=== PATIENT | female | born 1940 | race Caucasian/White ===

== ENCOUNTER 2018-07-06 04:54 | Inpatient (IN) ==
--- NOTE | 2018-06-16 10:53 | PAT Medication Instructions ---
Medication Instructions Date of Service June 16, 2018 ASK your prescriber and surgeon skjyjll-fewlugvdxcamr-dkyyjsap 2 tab PO Q6H PRN DO NOT take the morning of surgery calcium carbonate [Tums] 200 mg PO TID PRN hydrochlorothiazide 25 mg PO QAM magnesium 250 mg PO DAILY pseudoephedrine HCl [Sudafed] 30 mg PO BID PRN Take morning of surgery With a small sip of water, OTHERWISE NOTHING TO EAT OR DRINK AFTER MIDNIGHT: levothyroxine 50 mcg PO QAM Take evening before surgery calcium carbonate [Tums] 200 mg PO TID PRN (if needed) pseudoephedrine HCl [Sudafed] 30 mg PO BID PRN (if needed) travoprost [Travatan Z] 1 drp OPHTHALMIC (EYE) PM Other Notes If you have any questions please call us at [phone] or [phone] or [phone] or [phone]
--- NOTE | 2018-06-17 13:00 | Anesthesiology Consultation ---
Date of Service June 17, 2018 Assessment & Plan (1) Encounter for pre-operative examination: Chart Review Chart Review: Acceptable Risk for Surgery and Patient seen in Pre Admission Testing Teaching & Discussion Pre-Anesthesia Teaching/Discussion Notes: Instructed NPO after midnight before surgery,except medications with 15 cc of water. Medication instructions provided according to the PAT guidelines. History Surgery Operation Date: 07/06/18 07:00 Proposed Procedures p Total Knee Arthroplasty - Haseeb Alfaro MD Height/Weight Height: 5 ft 7.25 in Weight: 82.5 kg Allergies Allergy/AdvReac Type Severity Reaction Status Date / Time adhesive Allergy Severe SKIN Verified 06/17/18 14:05 REDDENING AND BLISTERING nickel Allergy Severe LOCALIZED Verified 06/17/18 14:05 SWELLING; "PUS" REACTION FROM [facility] codeine AdvReac Severe GI SYMPTOMS Verified 06/17/18 14:05 gabapentin AdvReac VOMITING Verified 06/17/18 13:12 Additional Notes: OR/surgeon made aware of nickel allergy* Medications Home Medications Medication Instructions Recorded Confirmed Last Taken vpaqbwz-xjmtmtntslaba-zetkebtf 2 tab PO Q6H PRN 06/16/18 06/16/18 Unknown [Excedrin Extra Strength] calcium carbonate [Tums] 200 mg PO TID PRN 06/16/18 06/16/18 Unknown hydrochlorothiazide 25 mg PO QAM 06/16/18 06/16/18 Unknown levothyroxine 50 mcg PO QAM 06/16/18 06/16/18 Unknown magnesium 250 mg PO DAILY 06/16/18 06/16/18 Unknown pseudoephedrine HCl [Sudafed] 30 mg PO BID PRN 06/16/18 06/16/18 Unknown travoprost [Travatan Z] 1 drp OPHTHALMIC (EYE) PM 06/16/18 06/16/18 Unknown potassium chloride 20 meq PO DAILY 06/28/18 06/28/18 Unknown Past Medical History Medical History Bronchitis 04/2018= RESOLVED Cancer SCC, BCC GERD (gastroesophageal reflux disease) CONTROLLED Hypertension Hypothyroidism Migraine H/O Osteoarthritis Thyroid nodule Past Family History Family History Other No pertinent family history Past Surgical History Surgical History H/O toe surgery REMOVAL OF LEFT BIG TOE JOINT WITH HARDWARE PLACED History of cataract surgery B/L History of colonoscopy History of tonsillectomy Hx of lumpectomy "BENIGN" S/P GILMA (total abdominal hysterectomy) Status post Mohs surgery Past Anesthesia History No Hx of Anesthesia Complications (EXCEPT PONV) and No Family Hx of Anesthesia Complications History of PONV Yes Motion Sickness Screening History of Motion Sickness: Yes (MILD) Social History Smoking Status: Never smoker Do You Dip or Chew Tobacco: No Hx Alcohol Use: Yes Alcohol type: wine alcohol intake frequency: a few times a month Hx Substance Use: No substance use type: does not use Exercise / Class Metabolic Activity II 4-5 Yardwork/Stairs/Walk up hill Review of Systems Patient denies chest pain, shortness of breath, dyspnea on exertion, cough, wheezing, palpitations. Physical Exam Vital Signs VITALS BP 123/81 P 77 TEMP 97.7 SP02 97%RA RESP 18 PHYSICAL Full neck and c-spine range of motion. Full TMJ range of motion. TMD 2.5 finger breaths Mallampati Score 2 Dentition: intact Lungs: clear throughout to auscultation Cardiac: regular rate and rhythm, no murmurs noted Spine: normal Carotid arteries: negative bruit Extremities: no edema Testing Electrocardiogram Date: 06/17/18 Normal sinus rhythm at 73bpm. Left anterior fascicular block. Left axis deviation. Chest X-Ray Date: 06/17/18 Findings: + NAD Laboratory Results 06/17/18 13:27 06/17/18 13:27 Blood Type O Negative 06/17/18 13:27 Antibody Screen NEGATIVE 06/17/18 13:27 PT 9.8 Seconds (9.0-12.0) 06/17/18 13:27 INR 1.0 (0.9-1.1) 06/17/18 13:27 APTT 26.8 Seconds (21.0-31.0) 06/17/18 13:27 Repeat BMP: 06/25/18 SODIUM 142 POTASSIUM 4.4 (normalized after KCl 20meq twice daily x 1 week; PCP reviewed normalized K+ labs and are having patient now take KCl 20meq daily) CHLORIDE 105 CO2 27 BUN 14 CREATININE 0.6 GLUCOSE 91
--- NOTE | 2018-06-17 13:50 | XRay Report ---
XR chest Pre-admission PA/Lat CLINICAL HISTORY: Preoperative chest COMPARISON STUDY: No previous studies for comparison. FINDINGS: The cardiac and mediastinal contours are normal. There is no evidence of focal pulmonary co nsolidation. There is no evidence of failure. No pleural effusions are visualized.[ IMPRESSION: No active disease in the chest. Electronically signed by: Giovani Shi M.D. 06/17/2018 1:49 PM
[2018-06-17 15:14] LABS: BUN Creatinine Ratio 24.9 (10-20); Calcium 9.1 mg/dl (8.5-10.1); Creatinine Clr Calc Pharmacy 99.2 ml/min; Est GFR (African American) 106.9; Est GFR (Non-African American) 92.2; Potassium 2.7 mmol/L (3.5-5.1)
[2018-06-17 15:17] LABS: Partial Thromboplastin Time 26.8 Seconds (21.0-31.0); Prothrombin Time 9.8 Seconds (9.0-12.0)
[2018-06-17 15:55] LABS: Basophils # (auto) 0.02 K/uL (0-0.2); Basophils % (auto) 0.5 %; Eosinophils # (auto) 0.05 K/uL (0-0.5); Eosinophils % (auto) 1.4 %; Hematocrit (blood only) 37.9 % (37-47); Lymphocytes # (auto) 1.38 K/uL (1.2-3.4); Lymphocytes % (auto) 37.9 %; Mean Corpuscular Hgb Conc 34.3 g/dL (32-36); Mean Corpuscular Volume 86.7 fL (80-100); Mean Platelet Volume 11.6 fL (7.4-10.4); Monocytes # (auto) 0.38 K/uL (0.11-0.59); Monocytes % (auto) 10.4 %; Neutrophils # (auto) 1.81 K/uL (1.4-6.5); Neutrophils % (auto) 49.8 %; Platelet Count 226 K/uL (130-400); RDW Coefficient of Variation 14.3 % (11.5-14.5); RDW Standard Deviation 45.4 fL (36.4-46.3); Red Blood Count 4.37 M/uL (4.2-5.4); White Blood Count 3.64 K/uL (4.8-10.8)
--- NOTE | 2018-07-03 13:19 | History and Physical Report ---
DATE OF ADMISSION: 07/06/2018 CHIEF COMPLAINT: Left knee pain. HISTORY OF PRESENT ILLNESS: A 77-year-old white female who I have been following for the past several years for left knee pain and discomfort and DJD, primarily patellofemoral arthritis. It has been bothered her for a total of about 7-8 years. No injury. We have been treated her with her injections, which provided her some temporarily. This has become less successful over time. It helps for a couple weeks and that is about it. She is pretty miserable for the two months until the next shot. She has a lot of upcoming activities that she would like to be able to be more functional and have less pain. She limps as the day goes on. She has nighttime discomfort. She now would like to proceed with surgical treatment. When this knee does get aggravated, she has difficulty walking for about 5-6 days. PAST MEDICAL HISTORY: 1. Hypertension. 2. Hypothyroidism. 3. Gastroesophageal reflux disease. 4. Arthritis. 5. Skin cancer. PAST SURGICAL HISTORY: Previous surgeries include: 1. Left forefoot surgery. 2. Hysterectomy. 3. Eye surgery. ALLERGIES: NICKEL AND ADHESIVE BANDAGES. CURRENT MEDICINES: Include: 1. Hydrochlorothiazide 25 mg. 2. Levothyroxine 50 mcg daily. 3. Sudafed as needed. 4. Travatan eyedrops. 5. Omeprazole 20 mg a day. SOCIAL HISTORY: A 77-year-old white female. She is from [place]. She does not smoke. FAMILY HISTORY: Significant for breast cancer. REVIEW OF HISTORY: Negative for diabetes, neurologic problem, vascular problem, bleeding disorders. No chest pain or shortness of breath. No history of DVT or PE. No bleeding disorders. PHYSICAL EXAMINATION: GENERAL: A healthy, pleasant elderly female. Looks to be in pretty good health. HEENT: Benign. NECK: Supple. No lymphadenopathy. LUNGS: Clear to auscultation. HEART: Regular rate and rhythm. ABDOMEN: Soft, nontender, nondistended. EXTREMITIES: Grossly neurovascularly intact except as follows: Examination of the left leg reveals the patient walks with a bit of a stiff knee gait. She has a moderate to large knee joint effusion. Range of motion about 5 degrees short of full extension and 110 degrees of flexion. She has pain with flexion. She can do a straight leg raise. No pain with hip motion. X-RAYS: X-rays of the left knee reviewed. Shows some mild to moderate tibial femoral arthritis with severe/advanced patellofemoral arthritis. She has got a little bit of patellofemoral subluxation. She has got osteophytes in all 3 compartments. ASSESSMENT: A 77-year-old white female with a long history of left knee pain and discomfort consistent with moderate to advanced knee DJD. Moderate tibial femoral arthritis, but advanced patellofemoral arthritis. She has failed conservative treatment and would like to proceed with knee replacement. PLAN: We are going to proceed with a left total knee replacement. We talked about the risks and benefits of this procedure were explained to the patient including but not limited to DVT, PE, , infection, neurological injury, vascular injury, bleeding problem, pain, limited range of motion, stiffness, failure to relieve her symptoms, incomplete relief of symptoms, need for further surgery in the future, fracture, leg length inequality, nerve palsy, persistent pain, and incomplete relief of symptoms. I did tell this is less predictable for patellofemoral arthritis than tibiofemoral arthritis and this will be about a 70% chance that she will have good result. She understands and would like to proceed. She does have a NICKEL ALLERGY, so we will use a Saldivar and Nephew zirconium total knee replacement to avoid nickel issues. She is planning to be discharged to home using [facility] home health program.
[~2018-07-06 04:54] MED LIST: MISSING PHYSICIAN SIGNATURE ON ORDER SCH
--- OUTSIDE RECORDS SUMMARY | 2018-07-06 04:57 | External Medical Summary | Continuity of Care Document ---
:1940 Author Name Ja Keyes, Provider Address Unavailable Unavailable , Care Team Providers Name Role Phone Unavailable Unavailable Unavailable CHRISTOHPER LOREDO Unavailable Unavailable Problems Active medical history not documented Allergies and Adverse Reactions Bandaid (Allergy) Latex (Allergy) Nickel (Allergy) Medications hydroCHLOROthiazide TABS , M.D. Refills: 0 Synthroid TABS , M.D. Refills: 0 Zantac TABS , M.D. Refills: 0 Procedures Procedures not documented Immunizations Immunizations not documented Plan of Treatment Planned Observations Planned Goals not documented Results No Known Results Results not documented
[2018-07-06] MEDS ORDERED: FAMOTIDINE 20 MG TAB ONE (05:54)
[2018-07-06] MEDS ORDERED: ACETAMINOPHEN 500 MG TAB ONE (05:55)
[2018-07-06] MEDS ORDERED: METOCLOPRAMIDE HCL 10 MG TABLET ONE (05:55)
[2018-07-06] MEDS ORDERED: CEFAZOLIN 2,000 MG/15 ML IV PUSH IV ONE (05:56)
[2018-07-06] MEDS ORDERED: ACETAMINOPHEN 500 MG TAB PO SCH ×2 (06:00)
[2018-07-06] MEDS ORDERED: BUPIVACAINE LIPOSOME/PF 266 MG, BUPIVACAINE/EPINEPHRINE 50 ML, SODIUM CHLORIDE 0.9% 30 ... INFIL SCH ×2 (06:00)
[2018-07-06] MEDS ORDERED: CEFAZOLIN 2000MG 2,000 MG/15 ML SYR IV SCH ×2 (06:00)
[2018-07-06] MEDS ORDERED: FAMOTIDINE 20 MG TAB PO SCH (06:00)
[2018-07-06] MEDS ORDERED: LR 500ML BOLUS, THEN 15ML/HR IV SCH (06:00)
[2018-07-06] MEDS ORDERED: METOCLOPRAMIDE HCL 10 MG TABLET PO SCH ×2 (06:00)
[2018-07-06] MEDS ORDERED: LR 60ML/HR IV SCH ×2 (06:00)
[2018-07-06] MEDS ORDERED: GABAPENTIN 300 MG PO SCH ×2 (06:00)
[2018-07-06] MEDS ORDERED: ROPIVACAINE 0.5% 5 MG/ML 30 ML VIAL ONE (06:24)
[2018-07-06] MEDS ORDERED: BUPIVACAINE 0.5 % 5 MG/1 ML PF 10ML VIAL ONE (06:24)
[2018-07-06] MEDS ORDERED: EPINEPHrine INJ 1 MG/ML AMP ONE (06:24)
[2018-07-06] MEDS ORDERED: MIDAZOLAM HCL 1 MG/ML 2ML VIAL ONE ×2 (06:25→08:01)
[2018-07-06] MEDS ORDERED: fentaNYL citrate 100 MCG/2 ML VIAL ONE (06:26)
[2018-07-06] MEDS ORDERED: TRANEXAMIC ACID 1,000 MG **IV Intra-op IV SCH ×2 (06:30)
[2018-07-06] MEDS ORDERED: BACITRACIN INJ 50,000 UNIT VIAL ONE (06:39)
[2018-07-06] MEDS ORDERED: BUPIVACAINE 0.25% 30 ML VIAL ONE (06:39)
[2018-07-06] MEDS ORDERED: SODIUM CHLORIDE 0.9% PF 50 ML VIAL ONE (06:42)
[2018-07-06] MEDS ORDERED: BUPIVACAINE LIPOSOME 1.3% 266 MG/20 ML VIAL ONE (06:43)
--- NOTE | 2018-07-06 06:48 | History & Physical Bridge Note ---
Date of Service July 06, 2018 History & Physical Bridge Note I have examined the patient, reviewed the History & Physical and in the interval since the performance of the History & Physical I have noted the following changes of clinical significance: no changes noted
--- NOTE | 2018-07-06 08:42 | Post Operative Brief Note ---
Immediate Post Op Note v1 Date of Surgery July 06, 2018 Pre & Post Diagnosis Operation Date: 07/06/18 07:00 Pre-Op Diagnosis: Left Knee Degenerative Joint Disease Post-Op Diagnosis: Left Knee Degenerative Joint Disease Procedure Operation Date: 07/06/18 07:00 Actual Procedures p Left Total Knee Replacement/ Cemented - Haseeb Alfaro MD Surgeon Haseeb Alfaro MD [employer] Tabeler David, PAC Estimated Blood Loss 50 Findings Consistent with Post-Op Diagnosis Fluids 900 cc Specimens Left Knee + Synovium Drains Singh Catheter Anesthesia Type Spinal MAC Complications none Disposition Accompanied Patient To Recovery: No Disposition: Recovery Room
[2018-07-06] MEDS ORDERED: ONDANSETRON INJ 2 MG/ML 2 ML VIAL ONE (08:49)
[2018-07-06] MEDS ORDERED: ePHEDrine sulfate 50 MG/ML AMP IV PRN (09:04)
[2018-07-06] MEDS ORDERED: PROMETHAZINE HCL 12.5 MG in SODIUM CHLORIDE 0.9% 50 ML IV PRN (09:04)
[2018-07-06] MEDS ORDERED: ONDANSETRON INJ 2 MG/ML 2 ML VIAL IV PRN (09:04)
[2018-07-06] MEDS ORDERED: ATROPINE SULFATE 0.1 MG/ML 10ML SYR IV PRN (09:04)
[2018-07-06] MEDS ORDERED: NALOXONE HCL 0.4 MG/1 ML VIAL/CARP IV PRN ×2 (09:04→10:28)
[2018-07-06] MEDS ORDERED: FLUMAZENIL 0.1 MG/1 ML 10 ML VIAL IV PRN (09:04)
[2018-07-06] MEDS ORDERED: fentaNYL citrate 100 MCG/2 ML VIAL IV PRN (09:04)
--- NOTE | 2018-07-06 09:21 | XRay Report ---
LEFT KNEE 2 VIEWS History: Left total knee arthroplasty. Degenerative arthritis. Postop. FINDINGS: The patient is status post a left total knee arthroplasty. The hardware is intact. No fract ure or dislocation. Skin keren are in place. IMPRESSION: Left total knee arthroplasty. No evidence for hardware complication. Electronically signed by: Garrick Reddy M.D. 07/06/2018 9:20 AM
--- NOTE | 2018-07-06 09:54 | Anesthesiology Progress Note ---
Date of Service July 06, 2018 Anesthesia Post Procedure Vital Signs Vital Signs: Temp Pulse Pulse Resp BP Pulse Ox 07/06/18 09:50 63 13 131/81 99 07/06/18 09:40 62 16 121/72 99 07/06/18 09:30 61 20 125/73 98 07/06/18 09:20 60 12 132/72 98 07/06/18 09:10 59 L 12 123/69 100 07/06/18 09:00 67 14 122/73 100 07/06/18 08:50 36.5 C 73 15 145/73 H 98 07/06/18 05:35 36.8 C 80 18 179/88 H 96 Pain Intensity Left Knee: Pain Intensity: 0 Transfer of Care Handoff Completed per policy Notes Mental Status: alert / awake / arousable Patient Amnestic to Procedure: Yes Nausea / Vomiting: adequately controlled Pain: adequately controlled Airway Patency, RR, SpO2: stable & adequate BP & HR: stable & adequate Hydration State: stable & adequate Neuraxial Anesthesia: was administered and sensory block is resolving Anesthetic Complications: no major complications apparent
[2018-07-06] MEDS ORDERED: MAGNESIUM HYDROXIDE SUSP 30 ML UDC PO PRN (10:28)
[2018-07-06] MEDS ORDERED: NON-FORMULARY MEDICATION (Magnesium 250 MG) PO SCH (10:28)
[2018-07-06] MEDS ORDERED: METOCLOPRAMIDE HCL INJ 5 MG/ML 2 ML VIAL IV PRN (10:28)
[2018-07-06] MEDS ORDERED: CALCIUM CARBONATE 500 MG CHEWABLE TAB PO PRN (10:28)
[2018-07-06] MEDS ORDERED: PSEUDOEPHEDRINE HCL 30 MG TAB PO PRN (10:28)
[2018-07-06] MEDS ORDERED: ALUMINUM/MAGNESIUM SUSP 30 ML UDC PO PRN (10:28)
[2018-07-06] MEDS ORDERED: HYDROmorphone INJ 0.5 MG/0.5 ML SYR IV PRN (10:28)
[2018-07-06] MEDS ORDERED: BISACODYL 10 MG SUPP PR PRN (10:28)
[2018-07-06] MEDS: SODIUM CHLORIDE 0.9% 1000ML 1,000 ML IV SCH ×2 (10:59→21:36)
--- NOTE | 2018-07-06 11:07 | Operative Report ---
DATE OF OPERATION: 07/06/2018 SURGEON: Haseeb Alfaro MD PHONE REPRESENTATIVE: TAMARA Cronin PREOPERATIVE DIAGNOSIS: Left knee degenerative joint disease. POSTOPERATIVE DIAGNOSIS: Same. PROCEDURE PERFORMED: Left cemented posterior stabilized total knee arthroplasty. COMPLICATIONS: None. ESTIMATED BLOOD LOSS: 50 mL. FLUID REPLACEMENT: 900 mL crystalloid fluid replacement. ANESTHESIA: Spinal with adductor canal block. DRAINS: None. SPECIMENS: 1. Left knee sent for pathology. 2. Left knee synovium sent for pathology. TOURNIQUET TIME: 60 minutes at 300 mmHg. OPERATIVE INDICATIONS: The patient is a 77-year-old female who has had a long history of bilateral knee pain and discomfort. I have been treating over the past several years with injections, intermittent aspirations. She has had some intermittent hemarthrosis as well. X-ray showed moderate tibial femoral disease but advanced patellofemoral arthritis. She failed conservative treatment and elected to proceed with surgical management. The patient does have an apparent NICKEL ALLERGY, so we used a Saldivar and Nephew zirconium knee arthroplasty. OPERATIVE FINDINGS: Operative findings revealed large knee joint effusion with slight valgus alignment to her knee. She had about 10-15 degree flexion contracture. She had extensive grade 4 eburnation and exposed bone of the patellofemoral joint. She had some spotty grade 4 changes medially and laterally. She does have a very stained synovial lining with some staining of the articular cartilage, black in color. OPERATIVE IMPLANTS: 1. Saldivar and Nephew size left 5 posterior stabilized femoral component. 2. Saldivar and Nephew size 4 tibial tray. 3. A 12 mm posterior stabilized polyethylene insert. 4. A 32 x 9 mm all poly patella. DESCRIPTION OF PROCEDURE: The patient was taken to the operating room, identified, and placed on the operating table in supine position. All contact areas were appropriately padded. IV antibiotics were provided by the anesthesia team. A spinal anesthetic and adductor canal block had been provided in the holding area. A Singh catheter was placed in sterile fashion. A left thigh tourniquet was then placed, and the left lower extremity was then prepped and draped in usual sterile fashion. The left leg was elevated and exsanguinated with Esmarch, and tourniquet was placed at 300 mmHg. An anterior approach of left knee was then performed through a longitudinal incision centered over the patella. Sharp dissection was carried through subcutaneous tissues down to the level of the extensor mechanism. Medial parapatellar arthrotomy incision was made. Some subperiosteal dissection was carried out medially. The fat pad was resected from beneath the patella tendon. Lateral patellofemoral ligament was released. The patella was everted, and knee was flexed. I did do a complete synovectomy of the suprapatellar pouch and medial and lateral gutters and sent this synovium off for pathology. The osteophytes were taken off the distal femur. The ACL and PCL were then released from the distal femur, and the tibia subluxated anteriorly. The external tibial alignment jig was then placed in the anterior face of the tibia and adjusted 8 mm medially. Proximal tibial cut was made to remove about 3-4 mm of bone from the medial side. I did take a fairly large cut due to her flexion contracture and tightness to her knee. The tibia was then sized to a size 4. Attention was then drawn to the femur. The distal femur was entered with a sharp drill bit. Intramedullary canal was suctioned. The left 5 degree valgus cutting guide was placed. Distal femoral cutting block was pinned in place. I adjusted this to take an additional 2 mm of bone off the distal femur due to her flexion contracture. Distal femoral cut was made. The femur was then sized to a size 5. We did downsize this slightly. The AP cutting block was pinned in place, which was parallel to the epicondylar axis, which was 6 degrees of external rotation. The anterior cut, anterior cord, posterior cut, posterior chamfer, and anterior chamfer cuts were made. The knee was flexed. The remnants of medial and lateral menisci were excised. The osteophytes were taken off the posterior aspect of the femur. The trial femoral component was placed. The trochlear cutting guide was placed in the defect for the trochlea, and the intercondylar notch was created. The trochlear component was then placed. I then trialed the knee, and a 12 mm insert fit most appropriately. Attention was then drawn to the patella. The patella was cleaned of all soft tissues. Patella thickness measured 19 mm in thickness, was cut down to 12. It was sized to a size 32 patella. Lug holes were drilled for a 32 patella. Lateral osteophyte was removed. Patella button was placed. Knee was taken through range of motion, patella tracked nicely with no thumbs test. Attention was then drawn toward placement of permanent components. All trial components were removed. Bone plug was placed in the distal femur to limit blood loss. A double batch Palacos G cement was mixed. A Saldivar and Nephew left size 5 posterior stabilized femoral component, size 4 tibial tray, 12 mm posterior stabilized polyethylene insert, 32 x 9 all poly patella were then cemented in place. The knee was brought into full extension until cement hardened. A final cement check was then performed. Pericapsular tissues were injected with a total of 100 mL of a combination of 20 mL Exparel, 30 mL of normal saline, 50 mL of 0.25% Marcaine with epinephrine. The patient did eventually get one dose of tranexamic acid shortly after tourniquet was let down. The hemostasis assured with use of electrocautery. The wound was once again irrigated. The extensor mechanism was then closed with a combination of #1 PDS suture and #1 Vicryl suture in a [id number] fashion. Extensor mechanism was checked and found to be intact. The subcutaneous tissue was then closed with 2 Dexon suture in buried interrupted fashion. Skin was closed with skin keren. Leg was then cleaned and dried, and a sterile dressing of Xeroform, 4 x 4's, sterile cast padding, and Alejandro bandage were applied. The patient was then transferred to the recovery room in stable condition. The patient tolerated the procedure well with no complications. All needle and sponge counts were correct at the end of the operation. I attest to the content of the Intraoperative Record and any orders documented therein. Any exception s are noted below.
[2018-07-06] MEDS: KETOROLAC TROMETHAMINE 15 MG/ML VIAL IV SCH ×3 (11:47→23:16)
[2018-07-06] MEDS: LEVOTHYROXINE SODIUM 50 MCG TABLET PO SCH (11:47)
[2018-07-06] MEDS: MULTIVITAMIN TAB PO SCH (13:11)
[2018-07-06] MEDS: ASPIRIN 81 MG ECTAB PO SCH ×2 (13:11→21:35)
[2018-07-06] MEDS: hydroCHLOROthiazide 25 MG TAB PO SCH (13:12)
[2018-07-06] MEDS: POTASSIUM CHLORIDE 20 MEQ TABCR PO SCH (13:12)
[2018-07-06] MEDS: DOCUSATE SODIUM 100 MG CAP PO SCH ×2 (13:12→21:34)
[2018-07-06] MEDS: ACETAMINOPHEN 500 MG TAB PO SCH ×2 (13:52→21:35)
[2018-07-06] MEDS: CEFAZOLIN 2000MG 2,000 MG/15 ML SYR IV SCH ×2 (13:52→23:17)
[2018-07-06] MEDS ORDERED: TRANEXAMIC ACID 1,000 MG in 0.9 % SODIUM CHLORIDE 100 ML IV SCH (15:00)
--- NOTE | 2018-07-06 17:44 | Progress Note ---
DATE: 07/06/2018 SUBJECTIVE: A 77-year-old white female postop from a left knee replacement. She is doing well. Really not having any pain yet. No chest pain or shortness of breath, but she feels tired and worn out. Not feeling dizzy or lightheaded. OBJECTIVE: VITAL SIGNS: Temperature 36.5. Vital signs are stable. PHYSICAL EXAMINATION: GENERAL: Reveals a healthy pleasant elderly female. She is lying in bed, talking to her . Looks pretty comfortable. LUNGS: Clear to auscultation. HEART: Regular rate and rhythm. ABDOMEN: Soft, nontender, nondistended. EXTREMITIES: Grossly neurovascularly intact except as follows: Examination of left lower extremity reveals the leg to be well aligned. Dressing is clean, dry and intact. She can dorsiflex and plantarflex her foot appropriately. She is neurologically intact. X-RAYS: X-rays of the left knee from recovery room were reviewed. It shows left cemented posterior stabilized total knee arthroplasty. Components looked to be in good position. No signs of problems. ASSESSMENT: A 77-year-old white female postoperative from a left knee replacement, doing well. Pain is controlled. She is neurologically intact. PLAN: 1. DVT prophylaxis including thigh-high TEDs, SCDs, and aspirin twice a day. 2. PT/OT. Weight bear as tolerated. Left total knee protocol. 3. Pain control, doing well with current pain regimen. 4. Disposition: Plan to discharge to home with some home health once stable and medically recovered.
[2018-07-06] MEDS: ASCORBIC ACID 500 MG TAB PO SCH (18:15)
[2018-07-06] MEDS: FERROUS GLUCONATE 324 MG TAB PO SCH (18:15)
[2018-07-06] MEDS: TRAVOPROST Z 0.004% OPH SOLN 2.5 ML BTL OP SCH (21:34)
[2018-07-06] MEDS: SENNA 8.6 MG TAB PO SCH (21:35)
[2018-07-06] MEDS: ONDANSETRON INJ 2 MG/ML 2 ML VIAL IV PRN (21:40)
[2018-07-06] MEDS: TRAMADOL HCL 50 MG TABLET PO PRN (21:40)
[2018-07-07] MEDS: KETOROLAC TROMETHAMINE 15 MG/ML VIAL IV SCH ×4 (05:59→21:36)
[2018-07-07] MEDS: ACETAMINOPHEN 500 MG TAB PO SCH ×3 (05:59→21:36)
[2018-07-07] MEDS: LEVOTHYROXINE SODIUM 50 MCG TABLET PO SCH (05:59)
[2018-07-07 06:19] LABS: Hematocrit (blood only) 30.7 % (37-47); Hemoglobin 10.5 g/dL (12.0-16.0); Mean Corpuscular Hgb Conc 34.2 g/dL (32-36); Mean Corpuscular Volume 85.5 fL (80-100); Mean Platelet Volume 11.3 fL (7.4-10.4); Platelet Count 201 K/uL (130-400); RDW Coefficient of Variation 13.7 % (11.5-14.5); RDW Standard Deviation 43.1 fL (36.4-46.3); Red Blood Count 3.59 M/uL (4.2-5.4); White Blood Count 7.52 K/uL (4.8-10.8)
[2018-07-07 06:58] LABS: BUN Creatinine Ratio 15.6 (10-20); Calcium 7.7 mg/dl (8.5-10.1); Creatinine Clr Calc Pharmacy 106.1 ml/min; Potassium 2.7 mmol/L (3.5-5.1)
--- NOTE | 2018-07-07 08:05 | Anesthesiology Progress Note ---
Date of Service July 07, 2018 Anesthesia Post Procedure Vital Signs Vital Signs: Temp Pulse Pulse Pulse Resp BP Pulse Ox 07/07/18 02:50 36.7 C 74 16 135/79 98 07/06/18 23:15 37.1 C 76 16 107/62 97 07/06/18 19:28 37.1 C 70 14 110/72 99 07/06/18 15:58 36.5 C 63 18 119/76 100 07/06/18 13:08 61 18 127/81 07/06/18 12:16 60 16 113/71 100 07/06/18 11:16 36.4 C L 60 16 127/80 100 07/06/18 10:54 62 16 123/77 99 07/06/18 10:30 36.4 C L 64 16 127/80 100 07/06/18 10:00 62 13 121/73 100 07/06/18 09:57 36.3 C L 97 07/06/18 09:50 63 13 131/81 99 07/06/18 09:40 62 16 121/72 99 07/06/18 09:30 61 20 125/73 98 07/06/18 09:20 60 12 132/72 98 07/06/18 09:10 59 L 12 123/69 100 07/06/18 09:00 67 14 122/73 100 07/06/18 08:50 36.5 C 73 15 145/73 H 98 Pain Intensity Left Knee: Pain Intensity: 3 Notes Mental Status: alert / awake / arousable and participated in evaluation Patient Amnestic to Procedure: Yes Nausea / Vomiting: adequately controlled Pain: adequately controlled Airway Patency, RR, SpO2: stable & adequate BP & HR: stable & adequate Hydration State: stable & adequate Neuraxial Anesthesia: was administered and sensory block resolved Anesthetic Complications: no major complications apparent
[2018-07-07] MEDS: TRAMADOL HCL 50 MG TABLET PO PRN ×2 (08:20→16:23)
[2018-07-07] MEDS: FERROUS GLUCONATE 324 MG TAB PO SCH ×2 (08:21→17:39)
[2018-07-07] MEDS: POTASSIUM CHLORIDE 20 MEQ TABCR PO SCH (08:21)
[2018-07-07] MEDS: MULTIVITAMIN TAB PO SCH (08:21)
[2018-07-07] MEDS: ASCORBIC ACID 500 MG TAB PO SCH ×2 (08:21→17:38)
[2018-07-07] MEDS: ASPIRIN 81 MG ECTAB PO SCH ×2 (08:21→21:36)
[2018-07-07] MEDS: DOCUSATE SODIUM 100 MG CAP PO SCH ×2 (08:21→21:36)
[2018-07-07] MEDS: hydroCHLOROthiazide 25 MG TAB PO SCH (08:21)
[2018-07-07] MEDS ORDERED: POTASSIUM CHLORIDE 20 MEQ TABCR PO ONE ×2 (08:39→17:40)
--- NOTE | 2018-07-07 14:29 | Progress Note ---
DATE: 07/07/2018 SUBJECTIVE: A 77-year-old white female postop day 1 from a left knee replacement. She is doing pretty well. Pain is controlled. She says she just feels weak today. No chest pain or shortness of breath. Not feeling dizzy or lightheaded. OBJECTIVE: VITAL SIGNS: Temperature 36.5. Vital signs stable. PHYSICAL EXAMINATION: GENERAL: Reveals a pleasant elderly female. She is sitting up in bed, looks reasonably comfortable. EXTREMITIES: Examination of left leg reveals the dressing to be clean, dry and intact. Leg is well aligned. She can dorsiflex and plantarflex her foot appropriately. She is neurologically intact. LABORATORY DATA: Hemoglobin 10.5, hematocrit 30.7. Electrolytes are stable. Potassium is low at 2.7. ASSESSMENT: A 77-year-old white female postop day 1 from a left knee replacement, doing pretty well. Pain is controlled. Just feels a little bit tired and lethargic. Potassium is a little bit low and we will supplement that. PLAN: 1. DVT prophylaxis including thigh-high TEDs, SCDs, and aspirin twice a day. 2. PT/OT. Weight bear as tolerated. Left total knee protocol. 3. Pain control, doing pretty well with current pain regimen. 4. Hypokalemia. Will supplement her potassium and recheck tomorrow. 5. Disposition: She is planning to be discharged home with some home health once adequately recovered.
[2018-07-07] MEDS: ONDANSETRON INJ 2 MG/ML 2 ML VIAL IV PRN (15:14)
[2018-07-07] MEDS: SENNA 8.6 MG TAB PO SCH (21:36)
[2018-07-07] MEDS: TRAVOPROST Z 0.004% OPH SOLN 2.5 ML BTL OP SCH (21:36)
[2018-07-08] MEDS: TRAMADOL HCL 50 MG TABLET PO PRN ×2 (01:22→08:33)
[2018-07-08] MEDS: KETOROLAC TROMETHAMINE 15 MG/ML VIAL IV SCH (05:57)
[2018-07-08] MEDS: LEVOTHYROXINE SODIUM 50 MCG TABLET PO SCH (05:57)
[2018-07-08] MEDS: ACETAMINOPHEN 500 MG TAB PO SCH ×2 (05:57→13:06)
[2018-07-08 06:07] LABS: BUN Creatinine Ratio 12.6 (10-20); Calcium 7.9 mg/dl (8.5-10.1); Creatinine Clr Calc Pharmacy 120.6 ml/min; Est GFR (African American) 113.6; Est GFR (Non-African American) 98.1
--- NOTE | 2018-07-08 08:11 | Progress Note ---
DATE: 07/08/2018 SUBJECTIVE: A 77-year-old white female postop day 2 from a left knee replacement. She is doing okay. Pain is controlled. Still getting a bit dizzy and lightheaded when getting up. Denies any chest pain or shortness of breath. Not feeling nauseated. OBJECTIVE: VITAL SIGNS: Temperature 36.5. Vital signs stable. GENERAL: Physical examination reveals a pleasant elderly female. She is lying in bed doing a heel prop. Looks pretty comfortable this morning. EXTREMITIES: Examination of the left leg reveals incision to be clean, dry and intact. Really not much swelling. No drainage. Calf is soft and supple. NEUROLOGIC: She is neurologically intact. ASSESSMENT: A 77-year-old white female postop day 2 from left knee replacement, doing reasonably well. Pain is controlled. She is still getting a little dizzy and orthostatic while getting up. This should improve today. PLAN: 1. DVT prophylaxis including thigh-high TEDs, SCDs, and aspirin twice a day. 2. PT/OT. Weight bear as tolerated. Left total knee protocol. 3. Pain control, doing pretty well with current pain regimen. 4. Disposition: Plan to discharge to home with some home health once adequately recovered and medically stable.
[2018-07-08] MEDS: MULTIVITAMIN TAB PO SCH (08:34)
[2018-07-08] MEDS: ASPIRIN 81 MG ECTAB PO SCH (08:34)
[2018-07-08] MEDS: ASCORBIC ACID 500 MG TAB PO SCH (08:34)
[2018-07-08] MEDS: DOCUSATE SODIUM 100 MG CAP PO SCH (08:34)
[2018-07-08] MEDS: hydroCHLOROthiazide 25 MG TAB PO SCH (08:34)
[2018-07-08] MEDS: FERROUS GLUCONATE 324 MG TAB PO SCH (08:35)
[2018-07-08] MEDS: POTASSIUM CHLORIDE 20 MEQ TABCR PO SCH (08:35)
--- NOTE | 2018-07-13 01:15 | Discharge Summary ---
DATE OF ADMISSION: 07/06/2018 DATE OF DISCHARGE: 07/08/2018 ADMITTING PHYSICIAN AND SURGEON: Haseeb Alfaro MD. ADMITTING DIAGNOSIS: Left knee degenerative joint disease. SURGERY PERFORMED: Left total knee replacement. SECONDARY DIAGNOSES: Hypertension, hypothyroidism, gastroesophageal reflux disease, arthritis and skin cancer. CONSULTS: None obtained. HISTORY AND PHYSICAL EXAMINATION: Well documented in the patient's chart. HOSPITAL COURSE: The patient admitted on 07/06/2018, underwent total knee arthroplasty, tolerated the procedure well. There were no complications. She was transferred to the PACU postoperatively and later to the orthopedic floor for further care. She was given Ancef for antibiotic prophylaxis, MIA stockings, SCDs and aspirin for DVT prophylaxis. Hemoglobin, hematocrit and vital signs were monitored during hospital stay and remained stable. She did not require any blood transfusions. There were no complications. By postoperative day #2, she was tolerating regular diet, pain was controlled with oral pain medicine. She was participating in physical therapy. On postop day #2, she was discharged home, set up with home health services. She was given printed discharge instructions including new prescriptions for extra strength Tylenol, aspirin, iron supplement, Zofran, and tramadol. Continue her home medications, continue physical therapy, weightbearing as tolerated, MIA stockings. Follow up approximately 2 weeks postop or sooner if any problems or concerns.
== END 2018-07-08 14:17 | disposition home health service (06) | DRG 470 ==
LOC: ASU 04:54 → 3E 08:45